=== PATIENT | female | born 1975 | race Two or more races ===

== ENCOUNTER → 2021-01-15 | Outpatient (CLI) | payer OTHER ==
[2021-01-15 09:18] LABS: CALCIUM 9.2 mg/dL (8.5-10.1); CREATININE 0.9 mg/dL (0.6-1.0); GFR 67.1; POTASSIUM 3.5 mmol/L (3.5-5.1)
== END ==
LOC: LAB 08:13
PROVIDERS: ATTEND Anesthesiology
DX: N85.00 Endometrial hyperplasia, unspecified (principal)
CPT/HCPCS: 36415; 80048

== ENCOUNTER → 2021-10-21 | Outpatient (CLI) | payer OTHER ==
--- NOTE | 2021-10-21 16:59 | RAD ---
INDICATION: Reason: MENOMETRORRHAGIA, HX OF FIBROIDS / Spl. Instructions: / History: COMPARISON: None. TECHNIQUE: Grayscale and color ultrasound images uterus and adnexa. FINDINGS: Uterus: 121 x 68 x 64 mm. 7 mm endometrial stripe Right Ovary: 16 x 12 x 12 mm. Left Ovary: 17 x 16 x 12 mm. Vascular flow identified to bilateral ovaries. Multiple masses are seen within the myometrium with the largest 1 measuring 37 x 36 mm on the left as well as an additional mass measuring 22 x 23 mm anteriorly within the myometrium. Background heterog eneity of the myometrium. IMPRESSION: * There is a couple of solid appearing masses within the uterus most commonly from uterine fibroid. Electronically signed by: Bravo Galdamez MD (10/21/2021 4:57 PM) [id number]
== END ==
LOC: US 14:52
PROVIDERS: ATTEND Obstetrics & Gynecology
DX: D25.9 Leiomyoma of uterus, unspecified (principal); N92.1 Excessive and frequent menstruation with irregular cycle; D50.9 Iron deficiency anemia, unspecified
CPT/HCPCS: 76856